=== PATIENT | female | born 1945 | race Caucasian/White ===

== ENCOUNTER 2017-02-16 16:15 | Inpatient (IN) | payer OTHER, BC ==
[2017-02-16] MEDS ORDERED: TDAP ADULT 0.5 ML INJ (BOOSTRIX) IM ONE ×2 (16:49→17:48)
[2017-02-16] MEDS ORDERED: ONDANSETRON 4 MG/2 ML VIAL IVP ONE ×2 (16:52→16:53)
[2017-02-16] MEDS ORDERED: LET GEL TOPICAL 1 EA SYR TP ONE (16:57)
--- NOTE | 2017-02-16 16:57 | EDPHY ---
H & P Time Seen by Provider: 02/16/17 16:30 HPI/ROS: HPI: Zenaida Zambranofather is a 71 yrs, female who presents with Chief Complaint: eye cut Location: left eye Quality: laceration Duration: 1 hour prior to arrival Signs and Symptoms: no LOC, + mild dull frontal headache, + nausea, + mild posterior neck pain with movement, no vision changes, no dizziness, no abdominal pain, no chest pain, no SOB Timing: sudden Severity: moderate Context: accidental witnessed fall. no LOC. patient relates that her sandal tripped over ground and she fell face first on a rock hitting her left upper eyebrow. takes Advil daily. not sure of last tetanus shot. Modifying Factors: direct pressure Comment: ROS: Eyes: No blurred vision Respiratory: No shortness of breath, no cough Cardiovascular: No chest pain Gastrointestinal: No nausea, no vomiting no diarrhea Genitourinary: No dysuria Extremities: No myalgias Neurologic: No weakness, no numbness Skin: No rashes Hematologic: No bruising, no bleeding MEDICAL/SURGICAL HISTORY: Smoking Status: Never smoked Physical Exam: CONSTITUTIONAL: elderly female, mild distress, awake and alert, no obvious distress HEENT: normocephalic, PERRL, EOMI. left 2 cm V-shaped laceration inferior to eyebrow sparing orbit, dried blood noted around laceration. left cheek facial abrasions noted, Tympanic membranes clear. Oropharynx clear, no exudate and moist pink mucosa. Airway patent. No lymphadenopathy. NECK: supple, mild posterior tenderness to palpation, mild pain with flexion/ extension/rotation. No meningismus. Cardiovascular: Normal S1/S2, regular rate, regular rhythm, without murmur rub or gallop. PULMONARY/CHEST: Symmetrical and nontender. Clear to auscultation bilaterally Good air movement. No accessory muscle usage. ABDOMEN: Soft, nondistended, nontender, no rebound, no guarding, no peritoneal signs, no masses or organomegaly. No CVAT. PELVIS: supple, no pain with pelvic ricking EXTREMITIES: 2/2 pulses, right wrist medial tenderness to palpation; no scaphoid tenderness, flexion/extension intact. pain with pronation/supination. light touch sensation intact. no deformities, no clubbing, no cyanosis or edema. NEUROLOGICAL: no focal neuro deficits. GCS 15. SKIN: Warm and dry, no erythema. no rash. Good capillary refill. Constitutional: Initial Vital Signs Temperature (C) 36.7 C 02/16/17 16:19 Heart Rate 81 02/16/17 16:19 Respiratory Rate 20 02/16/17 16:19 Blood Pressure 105/73 02/16/17 16:19 O2 Sat (%) 94 02/16/17 16:19 O2 Delivery Mode Nasal Cannula Allergies/Adverse Reactions: No Known Allergies Allergy (Unverified 02/16/17 16:19) Home Medications: Medication Instructions Recorded traMADol 02/16/17 Medical Decision Making - Diagnostics Imaging Results: Imaging Impressions Wrist X-Ray 02/16/17 16:40 Impression: Findings suspicious of a nondisplaced distal radial metaphyseal fracture. Head CT 02/16/17 16:48 Impression: 1. No acute intracranial hemorrhage or skull fracture. 2. Left orbital floor fracture and nondisplaced fractures of the nasal bone and anterior and posterior wall of the left maxillary sinus. 3. Mild atrophy within normal limits for age. Findings discussed with Emergency Department physicianRosa Isela on 2016, [address] 02/16/17 16:49 Impression: 1. No acute fracture or soft tissue swelling. 2. Multilevel degenerative disk and facet arthropathy worse at the C5-C6 level. 3. If the patient has persistent pain or neurologic deficits, consider cervical spine MRI. Findings discussed with Emergency Department physicianRosa Isela on 2016, [address] 02/16/17 16:49 Impression: 1. Minimally depressed left orbital floor fracture (sparing the infraorbital rim ). No evidence of entrapment of the left inferior rectus muscle. 2. Nondisplaced fractures anterior and posterior wall of the left maxillary sinus. 3. Nondisplaced nasal bone fracture at left base. Findings discussed with Emergency Department physicianRosa Isela on 2016, 1745 hours. Ankle X-Ray 02/16/17 17:43 Impression: Distal talar avulsion. ED Course/Re-evaluation: head CT scan based on Eskdale score, CT Maxillofacial, CT Cervical, right wrist x-ray, pain control, wound care tetanus booster given Head CT scan no hemorrhage CT Maxillofacial scan shows minimally displaced 1-3 mm left orbital floor fracture, anterior/maxillary sinus fracture, left nasal bone fracture. PO Augmentin given right wrist xray shows nondisplaced distal radial fracture; placed in sugar tongue splint left ankle xray shows distal talar avulsion; walking boot due to age and mobility concerns to obtain immobilization and NWB status 7:20 PM ED decision to admit was made, spoke with Dr. Johnston Procedure: Laceration repair. Verbal consent was obtained from the patient. The v-shaped laceration on the left eyebrow was anesthetized in the usual fashion using 3 ml 1% lidocaine with epinephrine. The wound was irrigated, draped and explored to its base with a gloved finger. There were no deep structures involved. No tendon injury was identified. The wound was repaired with running 6-0 absorbable sutures with good approximation and hemostasis. The wound repair was complex and superficial. The procedure was performed by myself. - Data Points Medications Given: Discontinued Medications Amoxicillin/Clavulanate Potassium (Augmentin 875mg) 875 mg PO EDNOW ONE PRN Reason: Protocol Stop: 02/16/17 19:09 Last Admin: 02/16/17 19:15 Dose: 875 mg Diphenhydramine HCl (Benadryl Injection) 25 mg IVP EDNOW ONE Stop: 02/16/17 16:50 Last Admin: 02/16/17 17:34 Dose: Not Given Diphtheria/Tetanus/Acell Pertussis (Boostrix) 0.5 ml IM .ONCE ONE Stop: 02/16/17 16:50 Last Admin: 02/16/17 18:04 Dose: 0.5 ml Morphine Sulfate (Morphine) 1 mg IVP EDNOW ONE Stop: 02/16/17 16:50 Last Admin: 02/16/17 17:14 Dose: 1 mg Ondansetron HCl (Zofran) 4 mg IVP EDNOW ONE Stop: 02/16/17 16:53 Last Admin: 02/16/17 17:15 Dose: 4 mg Ondansetron HCl (Zofran) 4 mg IVP EDNOW ONE Stop: 02/16/17 16:54 Last Admin: 02/16/17 17:34 Dose: 4 mg Tetracaine/Epinephrine/Lidocaine (Let Gel Topical) 1 ea TP EDNOW ONE Stop: 02/16/17 16:58 Last Admin: 02/16/17 17:14 Dose: 1 ea Departure - Departure Disposition: [facility] Inpatient Acute Clinical Impression: Laceration of left eyebrow without complication, Closed fracture of left talus Condition: Fair Referrals: Abner Franco MD [Primary Care Provider] - As per Instructions
[2017-02-16] MEDS ORDERED: AMOXICILLIN/CLAVULANATE POT 875/125 MG TAB PO ONE (19:08)
[2017-02-16] MEDS ORDERED: ONDANSETRON 4 MG/2 ML VIAL IVP PRN (21:17)
[2017-02-16] MEDS ORDERED: oxyCODONE IR 5 MG TAB PO PRN (21:17)
[2017-02-16] MEDS ORDERED: PROMETHAZINE HCL 25 MG/ML INJ IVP PRN (21:17)
[2017-02-16] MEDS: traMADol 50 MG TAB PO PRN (22:04)
[2017-02-16] MEDS: ACETAMINOPHEN 325 MG TAB PO PRN (22:04)
[2017-02-16] MEDS: ALPRAZolam 0.25 MG TAB PO SCH (22:17)
--- NOTE | 2017-02-16 22:36 | GHP ---
[f rep st] HISTORY AND PHYSICAL DATE OF ADMISSION: 02/16/2017 CHIEF COMPLAINT: Fall and facial pain. 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 She notes she was walking down her driv eway when she got excited as she saw that there were 6 potted plants with signs saying they were for free on them. She began to run and then stumbled and fell on her face and hand. She notes that he r face landed on a rock. She had no loss of consciousness. She had no dizziness preceding her fall . She does not fall frequently. She also has pain in her left foot and her right wrist. PAST MEDICAL HISTORY: Chronic arthritis for which she takes 4-8 Advil daily. PAST SURGICAL HISTORY: Includes total knee arthroplasty in 2009. FAMILY HISTORY: Reviewed and noncontributory. SOCIAL HISTORY: The patient lives independently with her . She is a nonsmoker, nondrinker, nondrug user. REVIEW OF SYSTEMS: 10-point review of systems obtained, negative except as per HPI. HOME MEDICATIONS: 1. Tylenol. 2. Ibuprofen. 3. Tramadol. ALLERGIES: Codeine. PHYSICAL EXAM: VITAL SIGNS: BP 140/80, heart rate 96, respiratory rate 16, O2 sats 96% on room air . Temperature is 36.6. GENERAL APPEARANCE: Well-developed/well-nourished female. She has multipl e bruises and areas of suturing on her face. EYES: Anicteric. Left periorbital ecchymosis and lac eration over her left eyebrow. MOUTH: Oropharynx is clear, MMM. HEART: RRR, no MRG. LUNGS: CTA bilaterally. Normal work of breathing. ABDOMEN: Soft, nontender , nondistended. EXTREMITIES: Left lower extremity is in a brace. Right upper extremity is in an A ce bandage wrap. Otherwise no clubbing, cyanosis or edema. SKIN: Other than above, warm, dry, wel l perfused. NEURO/PSYCH: Oriented appropriate, pleasant. CLINICAL DATA: Labs reviewed. There are no recent laboratory studies. Facial CT shows minimally depressed left orbital floor fracture. There is nondisplaced fractures of the anterior and posterior wall of the left maxillary sinus, a nondisplaced nasal bone fracture. C T of the cervical spine shows nothing acute, just multilevel degenerative disc disease. Head CT, pe rsonally reviewed and interpreted, shows no acute findings other than left orbital floor fracture. Wrist x-ray suspicious for a nondisplaced distal radial metaphyseal fracture. Foot x-ray is negativ e for a fracture. Ankle x-ray of the left ankle shows a distal talar avulsion. ASSESSMENT/PLAN: This is a 71-year-old female with no significant past medical history, presenting status post mechanical fall at home with multiple injuries including left orbital floor fracture, na jacky fracture, distal radial fracture and distal talar avulsion. 1. Multiple fractures. This is especially difficult for this patient given that her injuries are o n both the upper and lower extremities and limit her ability to ambulate safely. She will be tamera t in for overnight observation and evaluation by PT/OT. Orthopedic surgery has been notified by the ER and will see the patient in the morning. These are likely non operative injuries. 2. Fall. Again this is mechanical in nature. She is not a high fall risk. 3. Pain. The patient is reluctant to use narcotic pain medications. I did discuss with her the ov er use of Advil. She states for the last approximately 7 years she has been using anywhere between 4-8 Advil tablets per day. We will check a basic metabolic panel in the morning. DISPOSITION: Observation status. I suspect she will need less than 48 hours stay for evaluation an d management of above. Patient is new to my care. Old records reviewed, summarized as per HPI and past medical history. C are plan reviewed with ER physician, including plans for overnight observation. /[id number]/MODL
[2017-02-17] MEDS: ALPRAZolam 0.25 MG TAB PO SCH ×2 (02:26→21:49)
[2017-02-17] MEDS: traMADol 50 MG TAB PO PRN ×3 (02:27→19:21)
[2017-02-17 05:00] LABS: % IMMATURE GRANULYOCYTES 0.3 % (0.0-1.1); ABSOLUTE IMMATURE GRANULOCYTES 0.05 10^3/uL (0.00-0.10); ADD DIFF? NO; ADD MORPH? NO; ADD SCAN? NO; ATYPICAL LYMPHOCYTE FLAG 10 (0-99); FRAGMENT RBC FLAG 0 (0-99); HEMATOCRIT 35.9 % (38.0-47.0); HEMOGLOBIN 11.8 g/dL (12.6-16.3); LEFT SHIFT FLG 0 (0-99); LIPEMIA HEMOLYSIS FLAG 80 (0-99); MEAN CELL HEMOGLOBIN 32.9 pg (27.9-34.1); MEAN CELL HEMOGLOBIN CONCENTR. 32.9 g/dL (32.4-36.7); MEAN PLATELET VOLUME 8.6 fL (8.7-11.7); PLATELET CLUMPS FLAG 0 (0-99); PLATELET COUNT 345 10^3/uL (150-400); RED BLOOD CELL COUNT 3.59 10^6/uL (4.18-5.33); RED CELL DISTRIBUTION WIDTH 12.6 % (11.5-15.2)
[2017-02-17 05:05] LABS: ANION GAP 11 mEq/L (8-16); CALCIUM 9.6 mg/dL (8.5-10.4); CARBON DIOXIDE 20 mEq/l (22-31); CHLORIDE 106 mEq/L (97-110); CREATININE 0.7 mg/dL (0.6-1.0); GLOMERULAR FILTRATION RATE > 60; GLUCOSE 138 mg/dL (70-100); POTASSIUM 3.8 mEq/L (3.5-5.2); SODIUM 137 mEq/L (134-144)
[2017-02-17] MEDS: ENOXAPARIN 40 MG/0.4 ML SYR SC SCH (07:43)
--- NOTE | 2017-02-17 09:17 | HOSPPROG ---
Hospitalist Progress Note Assessment/Plan: Patient is a 71-year-old female who presented to the emergency room after sustaining a fall. She was walking down a driveway when she saw some free potted plants. As walking to them she stumbled and fell on her face and hand. Today is my 1st encounter with the patient. Chart reviewed. Spoke with both Dr Mcmahon and Dr Pereyra about seeing Zenaida. Appreciate their involvement with caring for her. * Distal radius fracture in a splint * distal Angelique avulsion in the left ankle in a support boot * left orbital floor fracture and nasal fracture will discuss with trauma services if ENT needs to be involved *laceration above left eyebrow area will need sutures out * leukocytosis likely stress reaction *Plan: trauma to see, Dr Roddy maria orthopedics to see, evaluation by PT, OT and ST Subjective: Zenaida is c/o pain around left eye area/ says she is starting to feel the swelling. Objective: Vital Signs Temp Pulse Resp BP Pulse Ox 36.7 C 81 16 126/76 H 96 02/17/17 08:03 02/17/17 08:03 02/17/17 08:03 02/17/17 08:03 02/17/17 08:03 Laboratory Results 02/17/17 04:24 02/17/17 04:24 02/16/17 02/17/17 02/18/17 05:59 05:59 05:59 Intake Total 440 Output Total 950 Balance -510 - Physical Exam Constitutional: uncomfortable Eyes: other (left eye swollen shut/ ecchymosis aroung the eye/ sutures above the left eyebrow/patient tender around left nasal bone/ says she can see fine from her left eye) Ears, Nose, Mouth, Throat: hearing normal Cardiovascular: regular rate and rhythym Respiratory: no respiratory distress Gastrointestinal: normoactive bowel sounds Skin: warm Musculoskeletal: muscular tenderness Neurologic: AAOx3 Psychiatric: interacting appropriately, not anxious ICD10 Worksheet Patient Problems: Problems Problem Status Onset Closed fracture of left talus Acute Laceration of left eyebrow without complication Acute
[2017-02-17 12:28] LABS: HEMATOCRIT 40.4 % (38.0-47.0); HEMOGLOBIN 13.1 g/dL (12.6-16.3); MEAN CELL HEMOGLOBIN 32.8 pg (27.9-34.1); MEAN CELL HEMOGLOBIN CONCENTR. 32.4 g/dL (32.4-36.7); MEAN CELL VOLUME 101.3 fL (81.5-99.8); RED BLOOD CELL COUNT 3.99 10^6/uL (4.18-5.33); RED CELL DISTRIBUTION WIDTH 12.6 % (11.5-15.2)
--- NOTE | 2017-02-17 12:52 | PDCONSULT ---
Trackwalker Note: Trauma Surgery Consult CC: s/p fall with multiple fractures HPI: 71 y/o female tripped and fell yesterday afternoon at her home landing on her face with an outstreched right arm. She denies LOC and has had no visual disturbances or headache. She has spit up small amounts of blood since the injury. She was found to have fractures of the right distal radius, left anterior talus, left inferior orbital floor, left anterior and posterior maxilla and left nasal bones. She was seen in the [facility] ED by Dr. Garcia and admitted to the medical service. Trauma surgery consult was requested by Diane Oliver NP today. Zenaida is complaing of facial pain without headache or visual disturbances and right wrist pain. She denies significant pain in the left ankle. She denies nausea, vomiting, abdominal pain, weakness, paresthesias PMH: Left TKA hx osteoarthritis (sees Dr. Sanchez, [facility]) medications: ibuprofen 4-8 200mg tabs/daily SH: here with her . They live in [place] and they have several flights of stairs at home ROS: pertinant negatives per HPI PE: pleasant and articulate woman in NAD sutured left supraorbital laceration with moderate left zeyad-oral ecchymosis P3/3 RRL, EOM intact mouth clear/bruising left nasal trachea midline without crepitance/no cervical, thoracic or lumbar spinous process tenderness no JVD no thoracic tenderness/crepitance lungs: clear to auscultation chest: non-tender to anterior/lateral compression abd: soft/non-tender pelvis: stable to anterio/lateral compresion ext: right volar splint/L ankle immobilizer distal N/V intact CT head, facial, c-spine reviewed plain films left ankle/right wrist reviewed
[2017-02-17] MEDS: ONDANSETRON DISINTEGRATING 4 MG TAB PO PRN (13:26)
[2017-02-17] MEDS: BACITRACIN OINTMENT 1 PACKET TP SCH (17:01)
--- NOTE | 2017-02-17 18:03 | SOAPPROG ---
Downtime Inpatient MD Late Entry SOAP Note: Zenaida became nauseated and required Zofran x 2. She is uncomfortable going home this evening. Will continue PT/OT, supportive care and comfort measures. Terrance Mcmahon MD, FACS
[2017-02-17] MEDS: ACETAMINOPHEN 325 MG TAB PO PRN (19:20)
--- NOTE | 2017-02-17 22:54 | GCON ---
[f rep st] CONSULTATION ORTHOPEDIC CONSULTATION REASON FOR CONSULTATION: Consultation from Diane Oliver for evaluation of right wrist and left a nkle injury. HISTORY OF PRESENT ILLNESS: The patient was admitted from the emergency department yesterday. It s eems had fallen down some stairs, complained of pain in the right wrist and left ankle. Denies pain in any other extremity. Had some facial fractures and was seen by Trauma. She denies any numbness or tingling. Denies any other extremity injuries. PAST MEDICAL HISTORY: Noncontributory. MEDICATIONS: Please see medication list. PHYSICAL EXAMINATION: GENERAL: Patient is in no acute distress, has some abrasions about her face. VITAL SIGNS: Stable. EXTREMITIES: Her right upper extremity was examined. She is in a splint. She has sensation intact to light touch to the medial, ulnar, and radial nerve root distributions. She has brisk capillary refill. She is tender to palpation about the radial pole of the distal fem ur. Her left lower extremity is examined. She is in no acute distress. She was placed into a walk ing boot. She has mild tenderness to palpation about the ankle. She is neurovascularly intact with brisk capillary refill. IMAGING DATA: X-rays were reviewed of the right wrist which showed a questionable right distal radi us fracture, and the left ankle shows a possible avulsion fracture of the talus. ASSESSMENT AND PLAN: This is a 71-year-old female with a right distal radius fracture and a left ta juan pablo fracture. At this time, recommend treatment of both of these nonoperatively. I recommend she c ontinue the splint that she is in, in the right upper extremity. Follow up in clinic in 2 weeks for a cast. On the left lower extremity, she can be weightbearing as tolerated in the walking boot. S he can follow up in the Orthopaedic [facility] at the same time for her wrist. /[id number]/MODL
[2017-02-18] MEDS: ALPRAZolam 0.25 MG TAB PO SCH (04:24)
[2017-02-18] MEDS: traMADol 50 MG TAB PO PRN (04:27)
[2017-02-18 05:18] LABS: % IMMATURE GRANULYOCYTES 0.6 % (0.0-1.1); ABSOLUTE IMMATURE GRANULOCYTES 0.05 10^3/uL (0.00-0.10); ADD DIFF? NO; ADD MORPH? NO; ADD SCAN? NO; ATYPICAL LYMPHOCYTE FLAG 20 (0-99); FRAGMENT RBC FLAG 0 (0-99); HEMATOCRIT 42.7 % (38.0-47.0); LEFT SHIFT FLG 0 (0-99); LIPEMIA HEMOLYSIS FLAG 80 (0-99); MEAN CELL HEMOGLOBIN 33.2 pg (27.9-34.1); MEAN CELL HEMOGLOBIN CONCENTR. 32.8 g/dL (32.4-36.7); MEAN CELL VOLUME 101.2 fL (81.5-99.8); MEAN PLATELET VOLUME 8.9 fL (8.7-11.7); PLATELET CLUMPS FLAG 0 (0-99); PLATELET COUNT 367 10^3/uL (150-400); RED BLOOD CELL COUNT 4.22 10^6/uL (4.18-5.33); RED CELL DISTRIBUTION WIDTH 12.5 % (11.5-15.2)
[2017-02-18 05:29] LABS: ANION GAP 15 mEq/L (8-16); CALCIUM 9.7 mg/dL (8.5-10.4); CARBON DIOXIDE 18 mEq/l (22-31); CHLORIDE 107 mEq/L (97-110); CREATININE 0.6 mg/dL (0.6-1.0); GLOMERULAR FILTRATION RATE > 60; GLUCOSE 97 mg/dL (70-100); POTASSIUM 4.3 mEq/L (3.5-5.2); SODIUM 140 mEq/L (134-144)
--- NOTE | 2017-02-18 09:21 | SOAPPROG ---
SOAP Progress Note Assessment/Plan: Assessment: Plan: Subjective: pt complianing of nausea when siting up, likely post concussive lungs clear abd soft neuro intact. plan: likely home today. if ambulating with pt. Objective: Vital Signs Temp Pulse Resp BP Pulse Ox 37.1 C 82 16 129/71 H 93 02/18/17 08:21 02/18/17 08:21 02/18/17 08:21 02/18/17 08:21 02/18/17 08:21 Laboratory Results 02/18/17 04:38 02/18/17 04:38 02/17/17 02/18/17 02/19/17 05:59 05:59 05:59 Intake Total 1300 Output Total 1250 Balance 50 ICD10 Worksheet Patient Problems: Problems Problem Status Onset Closed fracture of left talus Acute Laceration of left eyebrow without complication Acute
[2017-02-18] MEDS: ONDANSETRON DISINTEGRATING 4 MG TAB PO PRN (09:37)
[2017-02-18] MEDS: ACETAMINOPHEN 325 MG TAB PO PRN ×2 (09:37→15:40)
[2017-02-18] MEDS: ENOXAPARIN 40 MG/0.4 ML SYR SC SCH (09:39)
[2017-02-18] MEDS: BACITRACIN OINTMENT 1 PACKET TP SCH (09:42)
--- NOTE | 2017-02-18 11:43 | HOSPPROG ---
Hospitalist Progress Note Assessment/Plan: Patient is a 71-year-old female who presented to the emergency room after sustaining a fall. She was walking down a driveway when she saw some free potted plants. As walking to them she stumbled and fell on her face and hand. * Distal radius fracture in a splint will need a cast/ further f/u with ortho next week * distal Angelique avulsion in the left ankle in a support boot wbat * left orbital floor fracture and nasal fracture trauma didn't note any f/u *laceration above left eyebrow area will need sutures out *post concussive syndrome/having some nausea requiring zofran during my evaluation, she had been unable to eat * leukocytosis resolved *Plan: explained to the patient and her , she needs to be able to eat and drink to be dc home. Will re-evaluate later today. Subjective: Barbara said she is feeling better, but having significant nausea. Objective: Vital Signs Temp Pulse Resp BP Pulse Ox 37.1 C 82 16 129/71 H 93 02/18/17 08:21 02/18/17 08:21 02/18/17 08:21 02/18/17 08:21 02/18/17 08:21 Laboratory Results 02/18/17 04:38 02/18/17 04:38 02/17/17 02/18/17 02/19/17 05:59 05:59 05:59 Intake Total 1300 Output Total 1250 Balance 50 - Physical Exam Constitutional: uncomfortable Eyes: PERRL, other (left eye with less swelling, ecchymois aroung eye, stiches above left eyebrow area) Cardiovascular: regular rate and rhythym Respiratory: no respiratory distress Skin: warm, other (right hand with good cms) Musculoskeletal: muscular tenderness, generalized weakness Neurologic: AAOx3 Psychiatric: interacting appropriately ICD10 Worksheet Patient Problems: Problems Problem Status Onset Closed fracture of left talus Acute Laceration of left eyebrow without complication Acute
[2017-02-18] MEDS ORDERED: ONDANSETRON DISINTEGRATING 4 MG TAB PO ONE (11:55)
--- NOTE | 2017-02-18 14:31 | PDIAF ---
- Diagnosis Diagnosis: distal radius fx, avulsion to left ankle, left orbital fx, nasal fx. fall. Code Status: Full Code - Medication Management Discharge Medications: Medications to Continue on Transfer Acetaminophen [Tylenol ES 500 mg (*)] 500 - 1,500 mg PO DAILY PRN 02/16/17 [ Last Taken Unknown] Herbals/Supplements -Info Only 1 ea PO DAILY 02/16/17 [Last Taken Unknown] Ibuprofen [Advil] 200 - 400 mg PO DAILY PRN 02/16/17 [Last Taken Unknown] traMADol [Ultram 50 mg (*)] 50 mg PO BID PRN 02/16/17 [Last Taken 02/16/17] Acetaminophen [Tylenol 325mg (*)] 650 mg PO Q4HRS PRN #0 tab 02/18/17 [Last Taken Unknown] Ondansetron Odt [Zofran Odt 4 mg (*)] 4 mg PO Q4HRS PRN #30 tab 02/18/17 [Last Taken Unknown] traMADol [Ultram 50 mg (*)] 50 mg PO Q4H PRN #20 tab 02/18/17 [Last Taken Unknown] Discharge Medications: Refer to the Discharge Home Medication list for PRN reason. - Orders Services needed: Home Care, Physical Therapy, Occupational Therapy, Speech Language Pathologist Home Care Face to Face: I certify that this patient was under my care and that I had the required [id number] encounter meeting the encounter requirements on the discharge day. My findings support the fact that the patient is homebound as defined in CMS Chapter 7 Medicare Benefits Manual 30.1.1, The condition of the patient is such that there exists a normal inability to leave home and consequently, leaving home would require a considerable and taxing effort. Diet Recommendation: no restrictions on diet Diet Texture: Regular Texture Diet Activity/Weight Bearing Restrictions: weight bearing as tolerated to left ankle. You will need further f/u with orthopedics next week in regard to distal radius fx/ leave in splint for now. Additional: if you develop nausea, vomiting that is ongoing/ return to the ER. Get Sutures removed in 7-10 days/ Dr Franco can remove. - Follow Up Care Current Providers and Referrals: Abner Franco MD [Primary Care Provider] - As per Instructions Nanci Sanchez MD [Medical Doctor] -
--- NOTE | 2017-02-18 15:05 | GDS ---
[f rep st] DISCHARGE SUMMARY DISCHARGE DIAGNOSES: 1. Distal radius fracture. 2. Distal talar avulsion in the left ankle. 3. Left orbital fracture and nasal fracture. 4. Laceration above left eyebrow area. 5. Post concussive syndrome. 6. Leukocytosis. CONSULTATIONS: During her stay: 1. Dr. Armen Pereyra. 2. Dr. Janes Mcmahon. HISTORY OF PRESENT ILLNESS: Briefly, the patient is a 71-year-old female, who was going to get some plants and tripped and fell at her home landing on her face, with an outstretched right arm. She did not have any loss of consciousness and had no visual disturbances. She was found to have fractures of the right distal radius, left anterior talus, left inferior orbital floor, left anterior and posterior maxilla, and left nasal bones. She was seen and evaluated by trauma services, and will be discharged today with home care. HOSPITAL COURSE: Per problem: 1. Distal radius fracture. She is in a splint, she will need a cast. She already has an appointment with the orthopedic surgeon. 2. Distal avulsion of the left ankle area. She can be weightbearing as tolerated. She is in a support boot. 3. Left orbital floor fracture. Nasal fracture. I have told her if she has any pain or loss of vision to return to the ER. 4. Laceration above the left eyebrow area. She will need her sutures out in about a week. 5. Post concussive syndrome. She is having significant bouts of nausea, requiring Zofran, we will give her a prescription for this. 6. Leukocytosis, resolved. PENDING LABS AND TESTS: None. CONDITION AT DISCHARGE: Stable. Blood pressure is 107/69, heart rate is 89, respiratory rate is 12, O2 sats on room air 90%, temperature is 36.7 Celsius. MEDICATIONS AT DISCHARGE: Please see the EMR. DISCHARGE INSTRUCTIONS: 1. Follow up with Dr Sanchez. 2. To take the Zofran as needed. 3. Stay well hydrated. 4. Recommending a low stimulus environment due to the concussion. 5. To get the sutures removed in 7-[address] Franco. Greater than 30 minutes discharging and coordinating care. Addendum. Patient was requesting Xanax at discharge for sleep. Explained to her and her my concern with her fall and concussion, that this was not prescribed out of concern for her possibly falling at night. She has multiple injuries In addition, she has declined home care as recommended. /[id number]/MODL MTDIrvin
[2017-02-18 16:23] VITALS: BP 116/73; PULSE 81; RESP 18; TEMP 98.1; O2SAT 94
== END 2017-02-18 16:06 | disposition home health service (06) | DRG 125 ==
LOC: F3N 21:13 → OBSVTOIN 02-17 15:18
PROVIDERS: ADMIT Internal Medicine; ATTEND Internal Medicine
PROC: 0HQ1XZZ Repair Face Skin, External Approach (ICD-10-PCS; principal; 2017-02-16)
DX: S02.32XA Fracture of orbital floor, left side, initial encounter for closed fracture (principal); S52.501A Unspecified fracture of the lower end of right radius, initial encounter for closed fracture; S92.152A Displaced avulsion fracture (chip fracture) of left talus, initial encounter for closed fracture; S02.2XXA Fracture of nasal bones, initial encounter for closed fracture; S01.112A Laceration without foreign body of left eyelid and periocular area, initial encounter; F07.81 Postconcussional syndrome; W01.198A Fall on same level from slipping, tripping and stumbling with subsequent striking against other object, initial encounter; Y93.E9 Activity, other interior property and clothing maintenance; Y92.014 Private driveway to single-family (private) house as the place of occurrence of the external cause; M19.90 Unspecified osteoarthritis, unspecified site; Z96.652 Presence of left artificial knee joint
CPT/HCPCS: 92523-GN; 97116-GP; 97161-GP; 97166-GO; 97535-GO; A4565; G0378; G8987-GO-CK; G8988-GO-CI; G9165-GN-CH; G9166-GN-CH; G9167-GN-CH; J1200; J1650; J2405; L4386